=== PATIENT | female | born 1985 | race Caucasian/White ===

== ENCOUNTER 2016-09-24 09:23 | Emergency (ER) | payer MEDICAID ==
[2016-09-24] MEDS ORDERED: LIDOCAINE 1% INJ-PF (10 MG/ML) 30 ML SDV INJ ONE (10:04)
--- NOTE | 2016-09-24 11:02 | ER Document Report ---
ED General - General Chief Complaint: Abscess Stated Complaint: LEG PAIN Mode of Arrival: Ambulatory Information source: Patient Notes: 30-year-old female presents with complaints of abscess of the left axillary region and left calf. Patient notes symptoms worsened yesterday she noticed she was able to express pus from the left leg. Denies any fevers chills nausea vomiting or diarrhea TRAVEL OUTSIDE OF THE [place] IN LAST 30 DAYS: No - HPI Onset: Other - To 3 days Onset/Duration: Sudden, Worse Quality of pain: Achy Severity: Mild Pain Level: 1 Associated symptoms: Other Exacerbated by: Denies Relieved by: Denies Similar symptoms previously: Yes - previous cyst drained Recently seen / treated by doctor: No - Related Data Allergies/Adverse Reactions: No Known Allergies Allergy (Verified 09/24/16 09:30) Past Medical History - Social History Smoking Status: Current Every Day Smoker Cigarette use (# per day): No Chew tobacco use (# tins/day): No Smoking Education Provided: No Frequency of alcohol use: None Drug Abuse: None Family History: Reviewed & Not Pertinent Patient has suicidal ideation: No Patient has homicidal ideation: No Endocrine Medical History: Denies: Hx Diabetes Mellitus Type 2 Renal/ Medical History: Denies: Hx Peritoneal Dialysis GI Medical History: Denies: Hx Gastroesophageal Reflux Disease Psychiatric Medical History: Reports: Hx Bipolar Disorder Past Surgical History: Reports: Hx Appendectomy, Hx Tubal Ligation - Immunizations Hx Diphtheria, Pertussis, Tetanus Vaccination: No - unknown Review of Systems - Review of Systems Notes: REVIEW OF SYSTEMS: CONSTITUTIONAL : Denies fever, chills, or sweats. Denies recent illness. EENT: Denies eye, ear, throat, or mouth pain or symptoms. Denies nasal or sinus congestion or discharge. Denies throat, tongue, or mouth swelling or difficulty swallowing. CARDIOVASCULAR: Denies chest pain. Denies palpitations or racing or irregular heart beat. Denies ankle edema. RESPIRATORY: Denies cough, cold, or chest congestion. Denies shortness of breath, difficulty breathing, or wheezing. GASTROINTESTINAL: Denies abdominal pain or distention. Denies nausea, vomiting , or diarrhea. Denies blood in vomitus, stools, or per rectum. Denies black, tarry stools. Denies constipation. GENITOURINARY: Denies difficulty urinating, painful urination, burning, frequency, blood in urine, or discharge. FEMALE GENITOURINARY: Denies vaginal bleeding, heavy or abnormal periods, irregular periods. Denies vaginal discharge or odor. MUSCULOSKELETAL: Denies back or neck pain or stiffness. Denies joint pain or swelling. SKIN: Abscess left axilla left calf HEMATOLOGIC : Denies easy bruising or bleeding. LYMPHATIC: Denies swollen, enlarged glands. NEUROLOGICAL: Denies confusion or altered mental status. Denies passing out or loss of consciousness. Denies dizziness or lightheadedness. Denies headache. Denies weakness or paralysis or loss of use of either side. Denies problems with gait or speech. Denies sensory loss, numbness, or tingling. Denies seizures. PSYCHIATRIC: Denies anxiety or stress. Denies depression, suicidal ideation, or homicidal ideation. ALL OTHER SYSTEMS REVIEWED AND NEGATIVE. Dictation was performed using [employer] recognition software PHYSICAL EXAMINATION: GENERAL: Well-appearing, well-nourished and in no acute distress. HEAD: Atraumatic, normocephalic. EYES: Pupils equal round and reactive to light, extraocular movements intact, conjunctiva are normal. ENT: Nares patent, oropharynx clear without exudates. Moist mucous membranes. NECK: Normal range of motion, supple without lymphadenopathy LUNGS: Breath sounds clear to auscultation bilaterally and equal. No wheezes rales or rhonchi. HEART: Regular rate and rhythm without murmurs ABDOMEN: Soft, nontender, nondistended abdomen. No guarding, no rebound. No masses appreciated. Female : deferred Musculoskeletal: Normal range of motion, no pitting or edema. No cyanosis. NEUROLOGICAL: Cranial nerves grossly intact. Normal speech, normal gait. Normal sensory, motor exams PSYCH: Normal mood, normal affect. SKIN: Draining abscess of the left calf with small amount of pus noted fluctuant mass left axilla 1 x 1 cm Physical Exam - Vital signs Vitals: Temp Pulse Resp BP Pulse Ox 98.0 F 98 16 128/88 H 100 09/24/16 09:31 09/24/16 09:31 09/24/16 09:31 09/24/16 09:31 09/24/16 09:31 Course - Re-evaluation Re-evalutation: 09/24/16 11:01 Patient was drained from both sites, given the size of the abscesses I do not believe antibiotics are necessary at this time After performing a Medical Screening Examination, I estimate there is LOW risk for OPEN FRACTURE, COMPARTMENT SYNDROME, TENDON RUPTURE, ACUTE NEUROVASCULAR INJURY, or RETAINED FOREIGN BODY, thus I consider the discharge disposition reasonable. Also, there is no evidence or peritonitis, sepsis, or toxicity. The patient and I have discussed the diagnosis and risks, and we agree with discharging home with close follow-up with the understanding that symptoms and presentations can change. We also discussed returning to the Emergency Department immediately if new or worsening symptoms occur. We have discussed the symptoms which are most concerning (e.g., changing or worsening pain, fever , numbness, weakness, cool or painful digits) that necessitate immediate return. - Vital Signs Vital signs: Temp Pulse Resp BP Pulse Ox 98.0 F 98 16 128/88 H 100 09/24/16 09:31 09/24/16 09:31 09/24/16 09:31 09/24/16 09:31 09/24/16 09:31 Procedures - Incision and Drainage Left Leg Time completed: 10:50 - left axilla left calf Type: Simple, Multiple Anesthetic type: 1% Lidocaine mL's of anesthetic: 3 Blade size: 11 I&D procedure: Shurclens applied, Sterile dressing applied Incision Method: Incision made by scalpel Amount/type of drainage: small amount of pus drained Discharge - Discharge Clinical Impression: Abscess Condition: Stable Disposition: HOME, SELF-CARE Instructions: Abscess ([facility]) Additional Instructions: Follow-up in 3-5 days with your family doctor or return immediately if symptoms are worsening Prescriptions: Naproxen 500 mg PO BID #20 tablet
[2016-09-24 11:08] VITALS: BP 118/63
== END 2016-09-24 11:08 | disposition home or self-care (01) ==
LOC: ER 09:23
PROC: 0H9LXZZ Drainage of Left Lower Leg Skin, External Approach (ICD-10-PCS; principal; 2016-09-24)
PROC: 0H9CXZZ Drainage of Left Upper Arm Skin, External Approach (ICD-10-PCS; 2016-09-24)
DX: L02.412 Cutaneous abscess of left axilla (principal); L02.416 Cutaneous abscess of left lower limb; F17.200 Nicotine dependence, unspecified, uncomplicated; Z98.51 Tubal ligation status
CPT/HCPCS: 99283

== ENCOUNTER 2016-10-16 21:21 | Emergency (ER) | payer MEDICAID ==
--- NOTE | 2016-10-16 21:50 | ER Document Report ---
ED Medical Screen (RME) - General Stated Complaint: FALL,KNEE PAIN Time seen by provider: 21:46 Mode of Arrival: Wheelchair Notes: Patient states she fell off a 5 ft ladder landing on her right knee. States knee twisted the opposite way. Complains of pain and unable to bear weight. Knee is swollen.. I have greeted and performed a rapid initial assessment of this patient. A comprehensive ED assessment and evaluation of the patient, analysis of test results and completion of the medical decision making process will be conducted by additional ED providers. TRAVEL OUTSIDE OF THE [place] IN LAST 30 DAYS: No - Related Data Allergies/Adverse Reactions: No Known Allergies Allergy (Verified 10/16/16 21:47) Past Medical History Endocrine Medical History: Denies: Hx Diabetes Mellitus Type 2 Renal/ Medical History: Denies: Hx Peritoneal Dialysis GI Medical History: Denies: Hx Gastroesophageal Reflux Disease Psychiatric Medical History: Reports: Hx Bipolar Disorder Past Surgical History: Reports: Hx Appendectomy, Hx Tubal Ligation - Immunizations Hx Diphtheria, Pertussis, Tetanus Vaccination: No - unknown Physical Exam - Extremities Knee: Other - swelling noted to right knee, tender to palpation
[2016-10-16] MEDS ORDERED: OXYCODONE-ACETAMINOPHEN 5-325 MG TABLET PO ONE (21:51)
[2016-10-16] MEDS ORDERED: HYDROCODONE/ACETAMINOPHEN 5-325 MG 6 TAB/DSPK PO PRN (23:08)
--- NOTE | 2016-10-16 23:10 | ER Document Report ---
ED General - General Chief Complaint: Fall Injury Stated Complaint: FALL,KNEE PAIN Mode of Arrival: Wheelchair Notes: Patient is a 30-year-old female who presents after falling off a ladder and striking her knee. States that she slipped off the side of a ladder and heard her knee pop before she even hit the ground. States that she hit the lateral aspect of her right knee. Denies any prior injury to this knee. States that since that time she has been unable to bear weight on the leg. Does complain of a severe, constant, throbbing pain that has been unchanged since onset. States she tried apply ice which did not improve the pain. She became concerned when the knee became swollen and this prompted her to come to the emergency department. Denies any associated weakness or numbness. She has not seen her primary care physician regarding today's concerns. She denies any additional injuries. States the falls from approximately 2 steps up a ladder. TRAVEL OUTSIDE OF THE [place] IN LAST 30 DAYS: No - Related Data Allergies/Adverse Reactions: No Known Allergies Allergy (Verified 10/16/16 21:47) Past Medical History - General Information source: Patient - Social History Smoking Status: Current Every Day Smoker Chew tobacco use (# tins/day): No Frequency of alcohol use: None Drug Abuse: None Lives with: Spouse/Significant other Family History: Reviewed & Not Pertinent Endocrine Medical History: Denies: Hx Diabetes Mellitus Type 2 Renal/ Medical History: Denies: Hx Peritoneal Dialysis GI Medical History: Denies: Hx Gastroesophageal Reflux Disease Psychiatric Medical History: Reports: Hx Bipolar Disorder Past Surgical History: Reports: Hx Appendectomy, Hx Tubal Ligation - Immunizations Hx Diphtheria, Pertussis, Tetanus Vaccination: No - unknown Review of Systems - Review of Systems Notes: Constitutional: Negative for fever. Eyes: Negative for visual changes. ENT: Negative for facial injury Cardiovascular: Negative for chest injury. Respiratory: Negative for shortness of breath. Gastrointestinal: Negative for abdominal injury. Genitourinary: Negative for genital injury Musculoskeletal: Positive for right knee pain Skin: Negative for laceration/abrasions. Neurological: Negative for head injury. Physical Exam - Vital signs Vitals: Temp Pulse Resp BP Pulse Ox 97.9 F 96 20 101/68 98 10/16/16 21:50 10/16/16 21:50 10/16/16 21:50 10/16/16 21:50 10/16/16 21:50 Interpretation: Normal Notes: PHYSICAL EXAMINATION: GENERAL: Well-appearing, no acute distress. HEAD: Atraumatic, normocephalic. EYES: Pupils equal round and reactive to light, extraocular movements intact, sclera anicteric, conjunctiva are normal. ENT: nares patent, no oral pharyngeal trauma. No hemotympanum, no Alvarez's sign , no raccoon eyes. NECK: No midline cervical spine tenderness. Patient able to move their head to 45 bilaterally without any discomfort. LUNGS: Breath sounds clear to auscultation bilaterally and equal. No wheezes rales or rhonchi. HEART: Regular rate and rhythm without murmurs. 2+ DP pulses in the bilateral lower extremities. Capillary refills less than 2 seconds in all digits of the bilateral toes CHEST WALL: No ecchymosis over the chest wall. ABDOMEN: Soft, nontender, normoactive bowel sounds. No guarding, no rebound. No seatbelt sign. EXTREMITIES: There is swelling of the right knee with an associated hematoma. Patient is unable to perform flexion and extension of the knee secondary to pain. BACK: No midline spinal tenderness, step-offs, or deformities. NEUROLOGICAL: Face symmetric. Tongue protrudes midline. Extraocular motions intact. Pupils are 2 mm and equally reactive. Normal speech. Moves all extremities spontaneously and on command PSYCH: Normal mood, normal affect. SKIN: Warm, Dry, normal turgor, no rashes or lesions noted. Course - Re-evaluation Re-evalutation: 10/16/16 23:06 Patient presents with right knee swelling and limited flexion and extension secondary to severe pain. She is unable to ambulate. This occurred after she fell off a ladder and hurt a "pop". Suspect patient likely has a ligamentous injury. CYNDI greater than 0.9 taken at the bedside myself. Systolic blood pressure in the lower extremities is 116 and 111 in the upper extremity. Patient with a knee immobilizer placed, crutches provided, and orthopedic referral, and pain control.At this time will discharge with return precautions and follow-up recommendations. Verbal discharge instructions given a the bedside and opportunity for questions given. Medication warnings reviewed. Patient is in agreement with this plan and has verbalized understanding of return precautions and the need for primary care follow-up in the next 24-72 hours. - Vital Signs Vital signs: Temp Pulse Resp BP Pulse Ox 97.7 F 77 15 100/57 L 97 10/16/16 23:31 10/16/16 23:31 10/16/16 23:31 10/16/16 23:31 10/16/16 23:31 - Diagnostic Test Radiology reviewed: Image reviewed, Reports reviewed Radiology results interpreted by me: 10/16/16 23:08 Right knee x-ray: No acute fracture dislocation Discharge - Discharge Clinical Impression: Right knee injury Qualifiers: Encounter type: initial encounter Qualified Code(s): S89.91XA - Unspecified injury of right lower leg, initial encounter Condition: Good Disposition: HOME, SELF-CARE Additional Instructions: Your x-ray does not show any acute fracture today. You likely have a ligamentous injury. You should continue to take anti-inflammatories such as ibuprofen 600 mg every 6 hours. Take the [place] that has been prescribed as needed for pain not controlled by ibuprofen. Continue to apply ice to the area is much your able. Please follow-up with orthopedic surgery at your earliest ability. Please return immediately if you develop weakness, numbness, spreading redness from the area, or any other symptoms that are concerning to you. Prescriptions: Hydrocodone/Acetaminophen [[place] 5-325 Tablet] 1 each PO Q4HP PRN #20 tablet PRN Reason: Referrals: MANJULA WALTON MD [Primary Care Provider] - Follow up as needed ASHUTOSH SANCHEZ MD [ACTIVE STAFF] - Follow up in 3-5 days
[2016-10-16 23:32] VITALS: BP 100/57
== END 2016-10-16 23:30 | disposition home or self-care (01) ==
LOC: ER 21:21
DX: S89.91XA Unspecified injury of right lower leg, initial encounter (principal); M25.561 Pain in right knee; W19.XXXA Unspecified fall, initial encounter; F17.210 Nicotine dependence, cigarettes, uncomplicated
CPT/HCPCS: 99283; 73564; L1830

== ENCOUNTER 2016-12-02 08:45 | Emergency (ER) | payer MEDICAID, OTHER ==
[2016-12-02] MEDS ORDERED: FENTANYL CITRATE INJ/PF 100 MCG/2 ML AMPUL ONE (08:53)
[2016-12-02] MEDS ORDERED: NORMAL SALINE 1000 ML 1,000 ML IV PRN (08:55)
[2016-12-02] MEDS ORDERED: DIPH/PERTUSS(ACELL)/TETANUS VAC/PF 0.5 ML SYR (>=10YO) IM ONE (08:55)
[2016-12-02] MEDS ORDERED: FENTANYL CITRATE INJ/PF 100 MCG/2 ML AMPUL IV ONE (08:55)
[2016-12-02] MEDS ORDERED: CEFAZOLIN 1 GM/D5W RTU 50 ML IV ONE (08:55)
[2016-12-02] MEDS ORDERED: ONDANSETRON HCL INJ/PF 4 MG/2 ML SDV IV ONE (08:55)
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
[2016-12-02 09:10] LABS: MEAN CORPUSCULAR HEMOGLOBIN 29.7 pg (27.0-33.4); MEAN CORPUSCULAR HGB CONC 34.2 g/dL (32.0-36.0); MEAN CORPUSCULAR VOLUME 87 fl (80-97); RED BLOOD COUNT 4.73 10^6/uL (3.72-5.28); RED CELL DISTRIBUTION WIDTH 14.5 % (11.5-14.0); WHITE BLOOD COUNT 24.6 10^3/uL (4.0-10.5)
[2016-12-02 09:28] LABS: ALANINE AMINOTRANSFERASE 57 U/L (9-52); ALBUMIN 4.3 g/dL (3.5-5.0); ALKALINE PHOSPHATASE 80 U/L (38-126); ANION GAP 13 (5-19); ASPARTATE AMINO TRANSFERASE 69 U/L (14-36); BILIRUBIN,DIRECT 0.1 mg/dL (0.0-0.4); BILIRUBIN,TOTAL 0.9 mg/dL (0.2-1.3); BLOOD UREA NITROGEN 10 mg/dL (7-20); CALCIUM 9.5 mg/dL (8.4-10.2); CARBON DIOXIDE 23 mmol/L (22-30); CHLORIDE 106 mmol/L (98-107); CREATININE RESULT 0.67 mg/dL (0.52-1.25); GLUCOSE 134 mg/dL (75-110); POTASSIUM 4.2 mmol/L (3.6-5.0); SODIUM 142.2 mmol/L (137-145); TOTAL PROTEIN 6.8 g/dL (6.3-8.2)
[2016-12-02 09:51] LABS: BAND NEUTROPHILS % (MANUAL) 6 % (3-5); BASOPHILS % (MANUAL) 0 % (0-2); EOSINOPHILS % (MANUAL) 3 % (0-6); LYMPHOCYTES % (MANUAL) 14 % (13-45); TOTAL CELLS COUNTED 100
[2016-12-02 09:52] LABS: ANISOCYTOSIS SLIGHT
[2016-12-02] MEDS ORDERED: LORAZEPAM INJ 2 MG/1 ML VIAL IV ONE ×2 (09:52→10:26)
[2016-12-02] MEDS ORDERED: HYDROMORPHONE HCL INJ/PF 2 MG/ML AMPULE IV ONE (09:52)
[2016-12-02 09:53] LABS: POIKILOCYTOSIS SLIGHT
[2016-12-02] MEDS ORDERED: METOCLOPRAMIDE HCL INJ/PF 10 MG/2 ML SDV IV ONE (10:09)
[2016-12-02] MEDS ORDERED: METOCLOPRAMIDE HCL INJ/PF 10 MG/2 ML SDV ONE (10:11)
[2016-12-02] MEDS ORDERED: LORAZEPAM INJ 2 MG/1 ML VIAL ONE (10:27)
[2016-12-02 11:15] VITALS: BP 113/76
== END 2016-12-02 11:17 | disposition short-term general hospital (02) ==
LOC: ER 08:45
DX: S06.6X0A Traumatic subarachnoid hemorrhage without loss of consciousness, initial encounter (principal); S01.511A Laceration without foreign body of lip, initial encounter; S02.80XB Fracture of other specified skull and facial bones, unspecified side, initial encounter for open fracture; F17.210 Nicotine dependence, cigarettes, uncomplicated; V87.7XXA Person injured in collision between other specified motor vehicles (traffic), initial encounter
CPT/HCPCS: 96376; 99291; 90471; 96375; 96365; 36415; 84703; 85025; 80053; 70450; 70486; 71260; 72125; 74177; 90715; J0690; J3010; J2765; J1170; J2060; J2405

== ENCOUNTER 2016-12-06 14:27 | Emergency (ER) | payer MEDICAID, OTHER ==
[2016-12-06] MEDS ORDERED: PROMETHAZINE HCL 25 MG TABLET PO ONE (14:39)
[2016-12-06] MEDS ORDERED: OXYCODONE-ACETAMINOPHEN 5-325 MG TABLET PO ONE (14:39)
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
[2016-12-06] MEDS ORDERED: HYDROCODONE/ACETAMINOPHEN 10-325 MG TABLET PO ONE (16:13)
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
[2016-12-06 17:11] VITALS: BP 132/77
== END 2016-12-06 17:11 | disposition home or self-care (01) ==
LOC: ER 14:27
DX: S02.82XD Fracture of other specified skull and facial bones, left side, subsequent encounter for fracture with routine healing (principal); R51 Headache; V49.9XXD Car occupant (driver) (passenger) injured in unspecified traffic accident, subsequent encounter; R09.89 Other specified symptoms and signs involving the circulatory and respiratory systems; R11.10 Vomiting, unspecified; E11.9 Type 2 diabetes mellitus without complications; Z98.890 Other specified postprocedural states
CPT/HCPCS: 99284; 71020; 70450; J3490

== ENCOUNTER 2017-06-07 13:57 | Emergency (ER) | payer MEDICAID | END 2017-06-07 14:25 | disposition left against medical advice (07) | LOC: ER 13:57 | DX: Z53.21 Procedure and treatment not carried out due to patient leaving prior to being seen by health care provider (principal) ==

== ENCOUNTER → 2019-03-07 | Outpatient (CLI) | payer MEDICAID ==
[2019-03-07 16:12] LABS: T.VAGINALIS (WET MOUNT) NO TRICHOMONAS SEEN; YEAST (WET MOUNT) NO YEAST SEEN
[2019-03-07 16:15] LABS: BACTERIA (WET MOUNT) 4+ BACTERIA SEEN; WBCS (WET MOUNT) 1+ WBCS SEEN
[2019-03-07 17:39] LABS: CHLAM PCR NOT DETECTED (NOT DETECT)
== END ==
LOC: LAB 15:54
PROVIDERS: ATTEND Nurse Practitioner Acute Care
DX: N89.8 Other specified noninflammatory disorders of vagina (principal)
CPT/HCPCS: 87210; 87491; 87591

== ENCOUNTER → 2019-03-07 | Outpatient (CLI) | payer MEDICAID | LOC: LAB 15:40 | DX: Z53.9 Procedure and treatment not carried out, unspecified reason (principal) ==